=== PATIENT | male | born 1995 | race African-American/Black ===

== ENCOUNTER 2024-12-20 17:17 | Emergency (ER) | payer SELFPAY ==
[~2024-12-20] VITALS: Ht 170.2 cm; Wt 69.0 kg
[2024-12-20 17:20] VITALS: O2SAT 98
[2024-12-20] MEDS: ACETAMINOPHEN 325MG TABLET PO ONE (21:39)
[2024-12-20 22:07] VITALS: BP 140/93; PULSE 83; RESP 15; TEMP 36.9; O2SAT 100
== END 2024-12-20 22:18 | disposition home or self-care (01) ==
LOC: ER 17:17
DX: Z00.00 Encounter for general adult medical examination without abnormal findings (principal); Z59.00 Homelessness unspecified
CPT/HCPCS: 99283